=== PATIENT | male | born 1955 | race Caucasian/White ===

== ENCOUNTER → 2016-03-24 | Outpatient (CLI) | payer OTHER ==
[~2016-03-24] MED LIST: ASPI325T32 PO; BEN25 PO; DOCU-144 PO; DULR PR; LOSA100T7 PO; OXYC-481 PO; RANI150T5 PO; TRAM50TA2 PO; UDMOM PO; ZOLP5TAB PO
--- NOTE | 2016-03-24 16:11 | RADRPT ---
PROCEDURE: XR Left Hip and pelvis. CLINICAL INDICATION: Left hip pain. Pelvic pain. Postop. TECHNIQUE: Three views. Frontal pelvis. Frontal and lateral left hip. COMPARISON: 01/21/2016. 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 A lateral plate and multiple cerclage wi res and screws are also noted as seen previously. There is abundant callous formation surrounding a healing fracture of the proximal shaft of the femur in the region of the distal tip of the femoral stem component of the arthroplasty. There are moderate degenerative changes of the right hip with joint space narrowing and osteophytes. There has been prior lower lumbar spine surgery. There is no lytic or blastic lesion. Vascular calcifications are present consistent with atherosclerosis. IMPRESSION: 1. Satisfactory postoperative appearance of the left hip. 2. Healing fracture of the proximal shaft of the left femur with abundant callous formation. 3. Degenerative changes of the right hip and prior lower lumbar spine surgery. RPTAT: QQ .Zachery Dorado MD, MD Date Time Electronically viewed and signed by .Zachery Dorado MD, on 03/24/2016 16:10 .R/
--- NOTE | 2016-03-24 16:13 | RADRPT ---
PROCEDURE: XR Femur. CLINICAL INDICATION: Left leg pain. TECHNIQUE: AP and lateral views of the left femur were performed. COMPARISON: 01/21/2016. 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 A lateral plate and multiple cerclage wi res and screws are also noted as seen previously. There is abundant callous formation surrounding a healing fracture of the proximal shaft of the femur in the region of the distal tip of the femoral stem component of the arthroplasty. There is no lytic or blastic lesion. Vascular calcifications are present consistent with atherosclerosis. IMPRESSION: 1. Satisfactory postoperative appearance of the left femur. 2. Healing fracture of the proximal shaft of the left femur with abundant callous formation. RPTAT: QQ .Zachery Dorado MD, MD Date Time Electronically viewed and signed by .Zachery Dorado MD, on 03/24/2016 16:12 .R/
== END | disposition home or self-care (01) ==
LOC: HKI 10:05
PROVIDERS: ATTEND Orthopaedic Surgery
DX: M97.02XD Periprosthetic fracture around internal prosthetic left hip joint, subsequent encounter (principal); S72.302S Unspecified fracture of shaft of left femur, sequela; Z96.642 Presence of left artificial hip joint
CPT/HCPCS: 73502; 73552; Z7500; G0463